=== PATIENT | male | born 1940 | race Caucasian/White ===

== ENCOUNTER 2016-12-18 17:09 | Emergency (ER) | payer MEDICARE, OTHER ==
[2016-12-18 18:06] VITALS: BP 154/82
--- NOTE | 2016-12-18 19:08 | EDM.PDOC ---
ED HPI GENERAL MEDICAL PROBLEM - General Chief Complaint: General Stated Complaint: fall at home Time Seen by Provider: 12/18/16 18:50 Source of Information: Reports: Patient History Limitations: Reports: No limitations - History of Present Illness INITIAL COMMENTS - FREE TEXT/NARRATIVE: The patient presents after a fall when he tripped on a concrete curb and fell and landed on his right side sustaining abrasions and contusions to his right forehead, right arm, and right knee. He has pain over these locations. He denies a loss of consciousness, headache, lethargy, nausea or vomiting, seizures , visual changes, focal weakness or numbness or paresthesias. He has been weight bearing since the accident. He denies neck or back pain, chest pain, abdominal pain, pain of hips or pelvis, or other symptoms or complaints. - Related Data Allergies Allergy/AdvReac Type Severity Reaction Status Date / Time No Known Allergies Allergy Verified 12/18/16 17:13 Home Meds: Home Meds Albuterol/Ipratropium [Combivent Respimat] 1 puff IH Q6HR PRN 03/12/14 [History] Blood Sugar Diagnostic [Blood Glucose Test Strip] 1 each ASDIRECTED 03/12/14 [History] Carvedilol [Coreg] 3.125 mg PO BID 03/12/14 [History] Furosemide [Lasix] 40 mg PO BID 03/12/14 [History] Lancets 1 each ASDIRECTED 03/12/14 [History] Naproxen Sodium 550 mg PO BID 03/12/14 [History] Oxybutynin 10 mg PO BID 03/12/14 [History] Simvastatin [Zocor] 20 mg PO BEDTIME 03/12/14 [History] glipiZIDE [Glipizide ER] 5 mg PO DAILY 03/12/14 [History] metFORMIN [Glucophage] 1,000 mg PO BIDM 03/12/14 [History] Aspirin 81 mg PO DAILY 12/18/16 [History] Potassium Chloride 16 meq PO DAILY 12/18/16 [History] Past Medical History HEENT History: Reports: Hard of hearing, Impaired vision Other HEENT History: hearing aides x 2. Wears glasses Cardiovascular History: Reports: Bypass, CAD, High cholesterol, Hypertension, CO Genitourinary History: Reports: BPH Musculoskeletal History: Reports: Arthritis, Fracture Other Musculoskeletal History: Hx. of Left hand fracture Neurological History: Reports: TIA Endocrine/Metabolic History: Reports: Diabetes, type II, Obesity/BMI 30+ - Infectious Disease History Infectious Disease History: Reports: Chicken pox, Measles - Past Surgical History Cardiovascular Surgical History: Reports: Coronary artery bypass Male Surgical History: Reports: Prostate Biopsy, Other (see below) Other Male Surgeries/Procedures: Prostate radiation seed implants Social & Family History - Tobacco Use Smoking Status *Q: Former Smoker Years of Tobacco use: 25 Packs/Tins Daily: 2 Used Tobacco, but Quit: Yes Month Tobacco Last Used: Quit 30 years ago Second Hand Smoke Exposure: No - Caffeine Use Caffeine Use: Reports: Coffee, Soda - Alcohol Use Days Per Week of Alcohol Use: 0 - Recreational Drug Use Recreational Drug Use: No ED ROS GENERAL - Review of Systems Review Of Systems: ROS reveals no pertinent complaints other than HPI. ED EXAM, GENERAL - Physical Exam Exam: See Below Exam Limited By: No limitations General Appearance: alert, WD/WN, no apparent distress Eye Exam: bilateral eye: EOMI, normal inspection, PERRL Ears: normal external exam, normal canal, hearing grossly normal, normal TMs Ear Exam: bilateral ear: auricle normal, canal normal, TM normal Nose: normal inspection, normal mucosa, no blood Throat/Mouth: Normal inspection, Normal lips, Normal teeth, Normal gums, Normal oropharynx, Normal voice, No airway compromise Head: normocephalic, other (Abrasion and contusion of right forehead. No palpable step-offs or defects of skull. No periorbital contusions. Guerrero sign absent bilaterally. ) Neck: normal inspection, supple, non-tender, full range of motion. No: lymphadenopathy (L), lymphadenopathy (R), tender lateral, tender midline Respiratory/Chest: no respiratory distress, lungs clear, normal breath sounds, no accessory muscle use, chest non-tender Cardiovascular: normal peripheral pulses, regular rate, rhythm, no edema, no gallop, no murmur, no rub Peripheral Pulses: 2+: radial (L), radial (R), posterior tibial (L), posterior tibial (R), dorsalis pedis (L), dorsalis pedis (R) GI/Abdominal: normal bowel sounds, soft, non tender, no organomegaly, no distention Back Exam: normal inspection, full range of motion, CVA tenderness (L), CVA tenderness (R). No: paraspinal tenderness, vertebral tenderness Extremities: normal inspection, normal range of motion, non-tender, no pedal edema, normal capillary refill, other (Abrasion and contusion of right forearm and abrasion and contusion of right knee. No visible or palpable defects. No defects on palpation. ) Neurological: alert, oriented, CN II-XII intact, normal cognition, normal gait, normal reflexes, no motor/sensory deficits Psychiatric: normal affect, normal mood Skin Exam: Warm, Dry, Intact, Normal color, No rash Lymphatic: no adenopathy Course - Vital Signs Last Recorded V/S: Last Vital Signs Temp 36.8 C 12/18/16 18:05 Pulse 79 12/18/16 18:05 Resp 20 12/18/16 18:05 BP 154/82 H 12/18/16 18:05 Pulse Ox 94 L 12/18/16 18:05 - Orders/Labs/Meds Orders: Active Orders 24 hr Category Date Time Status Forearm 2V Rt [CR] Stat Exams 12/18/16 17:27 Taken Knee 3V Rt [CR] Stat Exams 12/18/16 18:32 Taken Knee wo Cont Rt [CT] Stat Exams 12/18/16 19:08 Taken CULTURE URINE [RM] Stat Lab 12/18/16 18:15 Ordered Labs: Laboratory Tests 12/18/16 12/18/16 12/18/16 Range/Units 17:30 17:30 18:00 WBC 6.5 (4.0-10.2) K/uL RBC 4.49 (4.33-5.41) M/uL Hgb 13.1 (13.1-16.8) g/dL Hct 40.7 (39.0-49.0) % MCV 90.6 (84.0-98.0) fL MCH 29.2 (28.2-33.3) pg MCHC 32.2 (31.7-36.0) g/dL RDW 15.4 H (11.2-14.1) % Plt Count 221 (150-350) K/uL Neut % (Auto) 57.7 (45.0-80.0) % Lymph % (Auto) 21.6 (10.0-50.0) % [place] % (Auto) 14.2 H (2.0-14.0) % Eos % (Auto) 6.2 H (0.0-5.0) % Baso % (Auto) 0.3 (0.0-2.0) % Neut # (Auto) 3.75 (1.40-7.00) K/uL Lymph # (Auto) 1.40 (0.50-3.50) K/uL [place] # (Auto) 0.92 (0.00-1.00) K/uL Eos # (Auto) 0.40 (0.00-0.50) K/uL Baso # (Auto) 0.02 (0.00-0.20) K/uL Sodium 140 (136-145) mmol/L Potassium 3.9 (3.5-5.1) mmol/L Chloride 103 (98-107) mmol/L Carbon Dioxide 27.5 (21.0-32.0) mmol/L BUN 28 H (7-18) mg/dL Creatinine 1.45 H (0.51-1.17) mg/dL Est Cr Clr Drug Dosing 45.44 mL/min Estimated GFR (MDRD) 47 mL/min Glucose 130 H (74-106) mg/dL Calcium 8.7 (8.5-10.1) mg/dL Total Bilirubin 0.4 (0.2-1.0) mg/dL AST 18 (15-37) U/L ALT 23 (12-78) U/L Alkaline Phosphatase 68 (46-116) IU/L C-Reactive Protein 1.4 H (<=0.9) mg/dL Total Protein 7.6 (6.4-8.2) g/dL Albumin 3.4 (3.4-5.0) g/dL Specimen Type Urinvoid Urine Color Yellow Urine Appearance Clear Urine pH 5.5 (5.0-9.0) Ur Specific [place] 1.020 (1.005-1.030) Urine Protein 30 H (NEGATIVE) mg/dL Urine Glucose (UA) 100 H (NEGATIVE) mg/dL Urine Ketones Negative (NEGATIVE) mg/dL Urine Occult Blood Small H (NEGATIVE) Urine Nitrite Positive H (NEGATIVE) Urine Bilirubin Negative (NEGATIVE) Urine Urobilinogen 0.2 (0.2-1.0) E.U./dL Ur Leukocyte Esterase Moderate H (NEGATIVE) Urine RBC 10-20 H /HPF Urine WBC >100 H /HPF Ur Epithelial Cells Few /LPF Urine Bacteria Many H (NONE TO FEW) /HPF - Radiology Interpretation Free Text/Narrative:: XR of right forearm shows no fractures or dislocations. XR of right knee questionable hairline abnormality of tibia extending up to tibial plateau but no definite fractures or dislocations. Radiologist recommends CT. CT of right knee shows no fractures or dislocations. Departure - Departure Time of Disposition: 19:52 Disposition: Home, Self-Care 01 Clinical Impression: Abrasion of forehead Qualifiers: Encounter type: initial encounter Qualified Code(s): S00.81XA - Abrasion of other part of head, initial encounter Contusion of forehead Qualifiers: Encounter type: initial encounter Qualified Code(s): S00.83XA - Contusion of other part of head, initial encounter Abrasion of right forearm, initial encounter Qualifiers: Encounter type: initial encounter Qualified Code(s): S50.811A - Abrasion of right forearm, initial encounter Contusion of right forearm, initial encounter Qualifiers: Encounter type: initial encounter Qualified Code(s): S50.11XA - Contusion of right forearm, initial encounter Abrasion, right knee, initial encounter Qualifiers: Encounter type: initial encounter Qualified Code(s): S80.211A - Abrasion, right knee, initial encounter Contusion of right knee, initial encounter Qualifiers: Encounter type: initial encounter Qualified Code(s): S80.01XA - Contusion of right knee, initial encounter UTI (urinary tract infection) Qualifiers: Urinary tract infection type: site unspecified Hematuria presence: with hematuria Qualified Code(s): N39.0 - Urinary tract infection, site not specified Concussion without loss of consciousness, initial encounter Qualifiers: Encounter type: initial encounter Qualified Code(s): S06.0X0A - Concussion without loss of consciousness, initial encounter Instructions: Concussion, Adult, [id number], Contusion, [id number], Abrasion, [id number] Referrals: Aundrea Marquez PA [Primary Care Provider] - Forms: ED Department Discharge Additional Instructions: 1. Abrasions cleaned by nursing staff and antibiotic ointment applied. 2. Patient instructed may clean abrasions with mild soap and apply antibiotic ointment daily. 3. Ice affected contusions in 20 minute cycles every 1-2 hours as able and as tolerated. 4. OTC acetaminophen 325-1,000 mg every 6 hours as needed for pain for next 24 hours. 5. After 24 hours may use OTC ibuprofen 400-800 mg every 6 hours as needed for pain. 6. Increase fluid intake. 7. Gradually advance activity as tolerated. 8. Prescription of Ciprofloxacin 500 mg tabs, 1 tab PO BID, 3 day take-home prescription and prescription for 4 days further (total 7 day course), 0 refills. 8. Followup with PCP in 5-7 days if continued symptoms or concerns or increased swelling, pain, redness, or drainage from wounds. 9. Return to ER with increased/refractory headache, visual changes, speech difficulty, focal weakness or numbness or paresthesias, nausea or vomiting, seizures, mental status changes, or other emergent concerns. - My Orders Last 24 Hours: My Active Orders 12/18/16 17:27 Forearm 2V Rt [CR] Stat 12/18/16 18:15 CULTURE URINE [RM] Stat 12/18/16 18:32 Knee 3V Rt [CR] Stat 12/18/16 19:08 Knee wo Cont Rt [CT] Stat - Assessment/Plan Last 24 Hours: My Active Orders 12/18/16 17:27 Forearm 2V Rt [CR] Stat 12/18/16 18:15 CULTURE URINE [RM] Stat 12/18/16 18:32 Knee 3V Rt [CR] Stat 12/18/16 19:08 Knee wo Cont Rt [CT] Stat Assessment:: Abrasion and contusion of right forehead. Abrasion and contusion of right forearm. Abrasion and contusion of right knee. Concussion without LOC. UTI. Plan: 1. Abrasions cleaned by nursing staff and antibiotic ointment applied. 2. Patient instructed may clean abrasions with mild soap and apply antibiotic ointment daily. 3. Ice affected contusions in 20 minute cycles every 1-2 hours as able and as tolerated. 4. OTC acetaminophen 325-1,000 mg every 6 hours as needed for pain for next 24 hours. 5. After 24 hours may use OTC ibuprofen 400-800 mg every 6 hours as needed for pain. 6. Increase fluid intake. 7. Gradually advance activity as tolerated. 8. Prescription of Ciprofloxacin 500 mg tabs, 1 tab PO BID, 3 day take-home prescription and prescription for 4 days further (total 7 day course), 0 refills. 8. Followup with PCP in 5-7 days if continued symptoms or concerns or increased swelling, pain, redness, or drainage from wounds. 9. Return to ER with increased/refractory headache, visual changes, speech difficulty, focal weakness or numbness or paresthesias, nausea or vomiting, seizures, mental status changes, or other emergent concerns.
== END 2016-12-18 20:45 | disposition home or self-care (01) ==
LOC: LL.ED 17:09
DX: S06.0X0A Concussion without loss of consciousness, initial encounter (principal); S00.83XA Contusion of other part of head, initial encounter; S50.11XA Contusion of right forearm, initial encounter; S80.01XA Contusion of right knee, initial encounter; N39.0 Urinary tract infection, site not specified; I25.10 Atherosclerotic heart disease of native coronary artery without angina pectoris; E78.00 Pure hypercholesterolemia, unspecified; I10 Essential (primary) hypertension; I25.2 Old myocardial infarction; M19.90 Unspecified osteoarthritis, unspecified site; E11.9 Type 2 diabetes mellitus without complications; E66.9 Obesity, unspecified; Z87.891 Personal history of nicotine dependence; Z79.899 Other long term (current) drug therapy; Z79.82 Long term (current) use of aspirin; W18.09XA Striking against other object with subsequent fall, initial encounter
CPT/HCPCS: 36415; 73090-RT; 73562-RT; 73700-RT; 80053; 81001; 85025; 86140; 87086; 87088; 87186; 99284